=== PATIENT | male | born 1955 | race Caucasian/White ===

== ENCOUNTER 2019-04-21 11:34 | Emergency (ER) | payer MEDICAID ==
[2019-04-21] MEDS ORDERED: Sodium Chloride 0.9% 10 ML Syringe FLUSH PRN (12:10)
[2019-04-21] MEDS ORDERED: Aspirin 81 MG Tab.Chew PO ONE (12:10)
[2019-04-21] MEDS ORDERED: Morphine 4 MG/ML Syringe IVPUSH ONE (12:13)
--- NOTE | 2019-04-21 13:07 | EDM.PDOC ---
ED HPI GENERAL MEDICAL PROBLEM - General Chief Complaint: Chest Pain Stated Complaint: CHEST PAIN Time Seen by Provider: 04/21/19 11:55 Source of Information: Reports: Patient, Family History Limitations: Reports: No Limitations, Other (severe right anterior chest pain 7 out of 10) - History of Present Illness INITIAL COMMENTS - FREE TEXT/NARRATIVE: Alert 64-year-old gentleman presents with the significant right anterior chest discomfort. Patient states his normal state of health this morning had a normal exam. Patient states he has pain which is worse with slightly breathing and even slight movement of his right anterior chest. Patient has never had symptoms like this before. He does feel slightly nauseated secondary to pain. Denies any sweating or diaphoresis. Patient continue moving items around his home due to recently selling one home and moving into another. Patient states his symptoms were worse with continued activity symptoms got better with a slight improvement of his activity. Patient denies any cough or a pressure tract symptoms. Patient denies any diarrhea or constipation. Patient does not have his gallbladder at this point in time. Patient states pain at rest is 3 out of 10 when he takes a deep breath and the pain becomes more severe it's a 7 out of 10. Onset: Sudden - Related Data Allergies Allergy/AdvReac Type Severity Reaction Status Date / Time No Known Allergies Allergy Verified 04/21/19 11:53 Home Meds: Home Meds Naproxen [Naprosyn] 500 mg PO Q8HR PRN 10 Days #30 tablet 04/21/19 [Rx] diazePAM [Valium] 5 mg PO BID PRN 5 Days #20 tab 04/21/19 [Rx] Past Medical History Other Musculoskeletal History: Surgery torn ligement repair r wrist Social & Family History - Tobacco Use Smoking Status *Q: Never Smoker ED ROS GENERAL - Review of Systems Review Of Systems: ROS reveals no pertinent complaints other than HPI. ED EXAM, GENERAL - Physical Exam Exam: See Below Exam Limited By: No Limitations General Appearance: Alert, WD/WN, Moderate Distress Eye Exam: Bilateral Eye: EOMI, PERRL Ears: Normal External Exam, Normal Canal, Hearing Grossly Normal, Normal TMs Nose: Normal Inspection, Normal Mucosa, No Blood Throat/Mouth: Normal Inspection, Normal Lips, Normal Teeth, Normal Gums, Normal Oropharynx, Normal Voice, No Airway Compromise Neck: Normal Inspection, Supple, Limited Range of Motion (pain to palpation right paravertebral cervical spine and trapezius muscles) Respiratory/Chest: Lungs Clear, Normal Breath Sounds, Chest Non-Tender, Splinting (respirations due to pain ) Cardiovascular: Normal Peripheral Pulses, Regular Rate, Rhythm, No Murmur GI/Abdominal: Normal Bowel Sounds, Soft, Non-Tender, No Organomegaly (Male) Exam: Deferred Back Exam: Normal Inspection, Full Range of Motion. No: CVA Tenderness (R), CVA Tenderness (L) Extremities: Normal Inspection, Normal Range of Motion, Non-Tender, Normal Capillary Refill, No Pedal Edema Neurological: Alert, Oriented, CN II-XII Intact, Normal Cognition, Normal Gait, Normal Reflexes, No Motor/Sensory Deficits Psychiatric: Normal Affect, Anxious Skin Exam: Warm, Dry, Intact, Normal Color, No Rash EKG INTERPRETATION EKG Date: 04/21/19 Time: 12:56 Rhythm: NSR Rate (Beats/Min): 63 [place]: Normal P-Wave: Present QRS: Normal ST-T: Elevated (subtle 1-2 mm elevation V1-V4 noted) QT: Normal Comparison: NA - No Prior EKG Course - Vital Signs Last Recorded V/S: Last Vital Signs Temp 35.9 C 04/21/19 11:58 Pulse 55 L 04/21/19 14:37 Resp 13 04/21/19 14:37 BP 143/75 H 04/21/19 14:37 Pulse Ox 95 04/21/19 14:37 - Orders/Labs/Meds Orders: Active Orders 24 hr Category Date Time Status Cardiac Monitoring [RC] .As Directed Care 04/21/19 12:10 Active EKG Documentation Completion [RC] ASDIRECTED Care 04/21/19 12:11 Active Peripheral IV Care [RC] . DIRECTED Care 04/21/19 12:11 Active Peripheral IV Insertion Adult [OM.PC] Stat Oth 04/21/19 12:10 Ordered EKG 12 Lead [EK] Stat Ther 04/21/19 12:10 Ordered Labs: Laboratory Tests 04/21/19 04/21/19 04/21/19 Range/Units 12:25 12:25 12:25 WBC 6.8 (4.5-11.0) K/uL RBC 5.07 (4.30-5.90) M/uL Hgb 15.0 (12.0-15.0) g/dL Hct 45.2 (40.0-54.0) % MCV 89 (80-98) fL MCH 30 (27-31) pg MCHC 33 (32-36) % Plt Count 268 (150-400) K/uL Neut % (Auto) 56 (36-66) % Lymph % (Auto) 33 (24-44) % [place] % (Auto) 9 H (2-6) % Eos % (Auto) 2 (2-4) % Baso % (Auto) 0 (0-1) % D-Dimer, Quantitative < 100 (0.0-400.0) ng/mL Troponin I < 0.017 (0.000-0.056) ng/mL Meds: Medications Discontinued Medications Generic Name Dose Route Start Last Admin Trade Name Freq PRN Reason Stop Dose Admin Aspirin 324 mg 04/21/19 12:10 04/21/19 12:28 Aspirin PO 04/21/19 12:11 324 mg ONETIME ONE Administration Diazepam 5 mg 04/21/19 13:19 04/21/19 13:24 Valium. PO 04/21/19 13:20 5 mg ONETIME ONE Administration Ketorolac Tromethamine 30 mg 04/21/19 13:19 04/21/19 13:24 Toradol IVPUSH 04/21/19 13:20 30 mg ONETIME ONE Administration Morphine Sulfate 4 mg 04/21/19 12:13 Morphine IVPUSH 04/21/19 12:14 ONETIME ONE Sodium Chloride 10 ml 04/21/19 12:10 04/21/19 12:28 Saline Flush FLUSH 10 ml ASDIRECTED PRN Administration Keep Vein Open - Radiology Interpretation Free Text/Narrative:: CXR PA/LAT: No significant acute cardiopulmonary findings noted. Radiology report reviewed before discharge. - Re-Assessments/Exams Free Text/Narrative Re-Assessment/Exam: 64-year-old male presents with decreased appetite anterior chest pain which is most worse with deep respirations. Patient is a nonsmoker. Denies any elevated cholesterol. Drinks alcohol. Patient has very few risk factors for cardiovascular disease or pulmonary embolism. Patient's parents majority of his family members do have elevated cholesterol and hypertension. He is not sure of any heart surgeries and his family history. Shared decision-making was completed due to believing symptoms are likely due to muscle strain. I am concerned it could be something more significant as due severity of pain at 7 at 10 in acute distress due to pain it is worse with respirations.. Patient does work outside and does do a great deal of heavy lifting pushing pulling and bending. Patient's symptoms worsened with exertion today and have not improved since discontinuing activity. Discussed my concern that symptoms may be cardiac in nature or pulmonary embolism I explained limitations of just treating pain and not completing a more thorough workup today. Patient and became more comfortable with additional workup. Patient's and state he extensive blood work completed in the last couple of weeks including liver function tests and renal function tests all of which were normal. I explained the laboratory studies that I would be checking with bladder changer the course of the last few hours if concerns. EKG shows some mild ST segment elevation in anterior leads but no previous EKGs available. Chest x-ray shows no acute cardiopulmonary findings or pneumonia. Laboratory studies show a normal d-dimer, normal troponin which was drawn more than 3 hours after onset of symptoms. Repeat troponin is not completed. Patient has had a cardiac stress test in the past and had tachycardia that did not resolve with discontinuation of activity. Patient did not address the concern noted during his cardiac stress test which his primary care provider which occurred couple years ago. Departure - Departure Time of Disposition: 14:12 Disposition: Home, Self-Care 01 Clinical Impression: Chest pain made worse by breathing, Muscle spasm, Chest wall discomfort - Discharge Information Prescriptions: Naproxen [Naprosyn] 500 mg PO Q8HR PRN 10 Days #30 tablet PRN Reason: Pain diazePAM [Valium] 5 mg PO BID PRN 5 Days #20 tab PRN Reason: Muscle Spasm Instructions: Muscle Cramps and Spasms, Electrocardiogram, Nonspecific Chest Pain, Cardiac-Specific Troponin I and T Test, Chest Wall Pain, Costochondritis Referrals: PCP,None [Primary Care Provider] - Forms: ED Department Discharge Additional Instructions: 1. Warm compress 15-20 minutes 3-4 times per day per comfort. Consider massage and testing. 2. Tylenol 500-1000mg every 6-8 hours for mild pain if needed. 3. Naproxen 500mg or Aleve 440mg or Ibuprofen 600-800mg as directed for inflammation, pain and swelling. 4. Call PCP regarding subtle EKG changes and compare to previous EKG. Discuss previous stress test and repeat testing if concerns. 5. Stretch per comfort after heat compress. - Problem List & Annotations (1) Chest pain made worse by breathing SNOMED Code(s): 859326994 Code(s): R07.1 - CHEST PAIN ON BREATHING Status: Acute (2) Muscle spasm SNOMED Code(s): 53488736 Code(s): M62.838 - OTHER MUSCLE SPASM Status: Acute (3) Chest wall discomfort SNOMED Code(s): 484852898, 176267757 Code(s): R07.89 - OTHER CHEST PAIN Status: Acute - My Orders Last 24 Hours: My Active Orders 04/21/19 12:10 Cardiac Monitoring [RC] .As Directed Peripheral IV Insertion Adult [OM.PC] Stat EKG 12 Lead [EK] Stat 04/21/19 12:11 EKG Documentation Completion [RC] ASDIRECTED Peripheral IV Care [RC] . DIRECTED - Assessment/Plan Last 24 Hours: My Active Orders 04/21/19 12:10 Cardiac Monitoring [RC] .As Directed Peripheral IV Insertion Adult [OM.PC] Stat EKG 12 Lead [EK] Stat 04/21/19 12:11 EKG Documentation Completion [RC] ASDIRECTED Peripheral IV Care [RC] . DIRECTED
[2019-04-21] MEDS ORDERED: Diazepam 5 MG Tab PO ONE (13:19)
[2019-04-21] MEDS ORDERED: Ketorolac 30 MG/ML SDV IVPUSH ONE (13:19)
[2019-04-21 14:37] VITALS: BP 143/75
--- NOTE | 2019-04-21 15:45 | CRLCR ---
Indication: Right-sided chest pain. Worsen with respiration. Technique: Two views of the chest were obtained. Comparison: None Findings: The heart is normal in size. The lungs are clear. No infiltrate, pleural effusion, or pneumothorax is identified. Impression: No acute cardiopulmonary process. Dictated by Noemi Calabrese MD @ Apr 21 2019 1:29PM Signed by Dr. Noemi Calabrese @ Apr 21 2019 1:30PM
== END 2019-04-21 14:48 | disposition home or self-care (01) ==
LOC: JP.ED 11:34
DX: R07.89 Other chest pain (principal); M62.838 Other muscle spasm; Z79.899 Other long term (current) drug therapy
CPT/HCPCS: 36415; 71046; 84484; 85025; 85379; 93005; 96374; 96375; 99285; A9270; J1885